=== PATIENT | female | born 1985 | race Two or more races ===

== ENCOUNTER 2018-04-19 07:56 | Outpatient (CLI) | payer OTHER ==
[~2018-04-19 07:56] MED LIST: DICLEGIS DR 101 EACH PO; NABUMETONE500 MG PO; PEPCID40 MG PO; PERCOCET 5/3251 TAB PO; PRENATAL 19 TA1 EACH PO
== END 2018-04-19 08:10 | disposition home or self-care (01) ==
LOC: RAD 07:56
DX: K42.9 Umbilical hernia without obstruction or gangrene (principal); Z01.818 Encounter for other preprocedural examination

== ENCOUNTER 2018-05-02 06:10 | Day surgery (SDC) | payer OTHER ==
[2018-05-02] MEDS ORDERED: NEURONTIN300 MG PO (09:10)
[2018-05-02] MEDS ORDERED: PERCOCET 5-3251 EACH PO (09:10)
[2018-05-02] MEDS ORDERED: MIRALAX17 GM PO (09:11)
== END 2018-05-02 10:30 | disposition home or self-care (01) ==
LOC: CIR.AMB 06:10
DX: K42.0 Umbilical hernia with obstruction, without gangrene (principal)

== ENCOUNTER 2018-08-24 11:38 | Outpatient (CLI) | payer OTHER ==
[~2018-08-24 11:38] MED LIST changes: +MIRALAX17 GM PO; +NEURONTIN300 MG PO; +PERCOCET 5-3251 EACH PO
== END 2018-08-24 11:52 | disposition home or self-care (01) ==
LOC: MRI 11:38
DX: M25.561 Pain in right knee (principal); M25.562 Pain in left knee
CPT/HCPCS: 73721

== ENCOUNTER → 2019-03-27 | Outpatient (CLI) | payer OTHER | END | disposition home or self-care (01) | LOC: MAMO-SONO 03-26 10:45 → SONOGRAMA 10:54 | DX: N63.10 Unspecified lump in the right breast, unspecified quadrant (principal); N63.20 Unspecified lump in the left breast, unspecified quadrant ==

== ENCOUNTER 2019-04-03 10:09 | Emergency (ER) | payer OTHER ==
[~2019-04-03] VITALS: Ht 162.6 cm; Wt 75.7 kg
== END 2019-04-03 14:41 | disposition home or self-care (01) ==
LOC: ER 10:09
DX: I95.9 Hypotension, unspecified (principal); R42 Dizziness and giddiness

== ENCOUNTER 2019-12-06 12:30 | Outpatient (CLI) | payer OTHER ==
[2019-12-10] MEDS ORDERED: VITAMIN C500 M2 (13:00)
== END 2019-12-06 12:35 | disposition home or self-care (01) ==
LOC: RAD 12:30
DX: K43.2 Incisional hernia without obstruction or gangrene (principal); Z01.811 Encounter for preprocedural respiratory examination

== ENCOUNTER 2019-12-11 05:37 | Day surgery (SDC) | payer OTHER ==
[~2019-12-11 05:37] MED LIST changes: +VITAMIN C500 M2
[2019-12-11] MEDS ORDERED: NEURONTIN600 M1 PO (13:46)
[2019-12-11] MEDS ORDERED: PERCOCET 5-3251 EACH PO (13:46)
[2019-12-11] MEDS ORDERED: COLACE100 MG PO (13:47)
== END 2019-12-11 18:00 | disposition home or self-care (01) ==
LOC: CIR.AMB 05:37
DX: K43.0 Incisional hernia with obstruction, without gangrene (principal)

== ENCOUNTER 2020-11-19 09:29 | Emergency (ER) | payer OTHER ==
[~2020-11-19] VITALS: Ht 162.6 cm; Wt 69.9 kg
[~2020-11-19 09:29] MED LIST changes: +COLACE100 MG PO; +NEURONTIN600 M1 PO
[2020-11-19] MEDS ORDERED: SKELAXIN800 MG PO (12:03)
[2020-11-19] MEDS ORDERED: KETO10TA2 PO (12:03)
== END 2020-11-19 12:53 | disposition home or self-care (01) ==
LOC: ER 09:29
DX: S83.92XA Sprain of unspecified site of left knee, initial encounter (principal); X50.0XXA Overexertion from strenuous movement or load, initial encounter; Y93.01 Activity, walking, marching and hiking; Y92.89 Other specified places as the place of occurrence of the external cause; Y99.8 Other external cause status

== ENCOUNTER → 2020-12-02 | Outpatient (CLI) | payer OTHER ==
[~2020-12-02] MED LIST changes: +KETO10TA2 PO; +SKELAXIN800 MG PO
== END | disposition home or self-care (01) ==
LOC: MRI 10:59
PROVIDERS: ATTEND Orthopaedic Surgery
DX: M25.561 Pain in right knee (principal)
CPT/HCPCS: 73721

== ENCOUNTER 2021-04-21 14:52 | Emergency (ER) | payer OTHER ==
[~2021-04-21] VITALS: Ht 162.6 cm; Wt 70.3 kg
== END 2021-04-21 16:56 | disposition home or self-care (01) ==
LOC: ER 14:52
DX: M25.561 Pain in right knee (principal); G89.11 Acute pain due to trauma

== ENCOUNTER → 2021-05-13 | Outpatient (CLI) | payer OTHER | END | disposition home or self-care (01) | LOC: LAB 11:59 | PROVIDERS: ATTEND Emergency Medicine Pediatric Emergency Medicine | DX: Z03.818 Encounter for observation for suspected exposure to other biological agents ruled out (principal) ==

== ENCOUNTER 2021-07-12 08:00 | Outpatient (CLI) | payer OTHER | END 2021-07-12 08:30 | disposition home or self-care (01) | LOC: PPH VACUNA 08:00 | PROVIDERS: ATTEND Emergency Medicine Pediatric Emergency Medicine | DX: Z23 Encounter for immunization (principal) ==

== ENCOUNTER → 2021-07-14 06:29 | Outpatient (CLI) | payer OTHER | END | disposition home or self-care (01) | LOC: LAB 06:29 | PROVIDERS: ATTEND Internal Medicine Cardiovascular Disease | DX: D64.89 Other specified anemias (principal); R10.84 Generalized abdominal pain; E03.8 Other specified hypothyroidism; E78.49 Other hyperlipidemia; E55.9 Vitamin D deficiency, unspecified; R73.09 Other abnormal glucose; R00.2 Palpitations; R06.09 Other forms of dyspnea ==

== ENCOUNTER 2021-07-27 12:48 | Emergency (ER) | payer OTHER ==
[~2021-07-27] VITALS: Ht 162.6 cm; Wt 72.6 kg
[2021-07-27] MEDS ORDERED: VITAMIN D-40010 MCG (13:05)
[2021-07-27] MEDS ORDERED: MULTI VITAMIN1 EACH PO (13:06)
[2021-07-27] MEDS ORDERED: FLONASE ALLERG9.9 ML NASAL (16:52)
[2021-07-27] MEDS ORDERED: MUCINEX DM ER1 EAC1 PO (16:52)
[2021-07-27] MEDS ORDERED: TOBRAMYCIN-DEXAM5 ML OP (16:52)
[2021-07-27] MEDS ORDERED: ZITHROMAX500 MG PO (16:52)
== END 2021-07-27 17:20 | disposition home or self-care (01) ==
LOC: ER 12:48
DX: J06.9 Acute upper respiratory infection, unspecified (principal); J03.90 Acute tonsillitis, unspecified; Z03.818 Encounter for observation for suspected exposure to other biological agents ruled out

== ENCOUNTER 2021-09-23 12:17 | Emergency (ER) | payer OTHER ==
[~2021-09-23] VITALS: Ht 162.6 cm; Wt 71.7 kg
[~2021-09-23 12:17] MED LIST changes: +FLONASE ALLERG9.9 ML NASAL; +MUCINEX DM ER1 EAC1 PO; +MULTI VITAMIN1 EACH PO; +TOBRAMYCIN-DEXAM5 ML OP; +VITAMIN D-40010 MCG; +ZITHROMAX500 MG PO
[2021-09-23] MEDS ORDERED: ORPHENADRINE C100 MG PO (15:47)
[2021-09-23] MEDS ORDERED: NAPROXEN SODIU275 MG PO (15:48)
== END 2021-09-23 15:53 | disposition home or self-care (01) ==
LOC: ER 12:17
DX: R42 Dizziness and giddiness (principal); M62.838 Other muscle spasm

== ENCOUNTER 2021-11-23 07:36 | Outpatient (CLI) | payer OTHER ==
[~2021-11-23 07:36] MED LIST changes: +NAPROXEN SODIU275 MG PO; +ORPHENADRINE C100 MG PO
== END 2021-11-23 07:43 | disposition home or self-care (01) ==
LOC: RAD 07:36
PROVIDERS: ATTEND Orthopaedic Surgery Sports Medicine
DX: M79.641 Pain in right hand (principal)

== ENCOUNTER → 2021-12-06 07:54 | Outpatient (CLI) | payer OTHER | END | disposition home or self-care (01) | LOC: LAB 07:54 | PROVIDERS: ATTEND Orthopaedic Surgery Sports Medicine | DX: M26.629 Arthralgia of temporomandibular joint, unspecified side (principal) ==

== ENCOUNTER 2021-12-06 08:33 | Outpatient (CLI) | payer OTHER | END 2021-12-06 08:42 | disposition home or self-care (01) | LOC: RAD 08:33 | PROVIDERS: ATTEND Orthopaedic Surgery Sports Medicine | DX: M54.2 Cervicalgia (principal) ==

== ENCOUNTER 2022-01-01 07:21 | Outpatient (CLI) | payer OTHER | END 2022-01-01 07:25 | disposition home or self-care (01) | LOC: LAB 07:21 | PROVIDERS: ATTEND Internal Medicine Cardiovascular Disease | DX: D64.9 Anemia, unspecified (principal); N39.0 Urinary tract infection, site not specified; R10.9 Unspecified abdominal pain; E03.9 Hypothyroidism, unspecified; E78.5 Hyperlipidemia, unspecified; E55.9 Vitamin D deficiency, unspecified; R80.9 Proteinuria, unspecified; E11.9 Type 2 diabetes mellitus without complications; R73.09 Other abnormal glucose; Z79.01 Long term (current) use of anticoagulants ==

== ENCOUNTER 2022-02-05 11:50 | Outpatient (CLI) | payer OTHER | END 2022-02-05 12:03 | disposition home or self-care (01) | LOC: RAD 11:50 | DX: M99.01 Segmental and somatic dysfunction of cervical region (principal); M99.02 Segmental and somatic dysfunction of thoracic region; M99.03 Segmental and somatic dysfunction of lumbar region ==

== ENCOUNTER 2022-02-11 20:24 | Emergency (ER) | payer OTHER ==
[~2022-02-11] VITALS: Ht 162.6 cm; Wt 73.9 kg
[2022-02-11] MEDS ORDERED: MIDODRINE HCL10 MG PO (20:43)
[2022-02-11] MEDS ORDERED: TUSNEL LIQUID178 ML PO (21:50)
[2022-02-11] MEDS ORDERED: DOLOGEN CAPLET1 EACH PO (21:50)
[2022-02-11] MEDS ORDERED: PROAIR HFA8.5 GM IH (21:50)
[2022-02-11] MEDS ORDERED: ZITHROMAX500 MG PO (21:50)
[2022-02-11] MEDS ORDERED: MEDROLPACK PO (21:50)
== END 2022-02-11 22:10 | disposition home or self-care (01) ==
LOC: ER 20:24
DX: U07.1 COVID-19 (principal); Z91.013 Allergy to seafood

== ENCOUNTER 2022-02-28 15:04 | Emergency (ER) | payer OTHER ==
[~2022-02-28] VITALS: Ht 162.6 cm; Wt 73.5 kg
[~2022-02-28 15:04] MED LIST changes: +DOLOGEN CAPLET1 EACH PO; +MEDROLPACK PO; +MIDODRINE HCL10 MG PO; +PROAIR HFA8.5 GM IH; +TUSNEL LIQUID178 ML PO
[2022-02-28] MEDS ORDERED: STRIBILD TABLE1 EACH PO (16:43)
== END 2022-02-28 18:34 | disposition home or self-care (01) ==
LOC: ER 15:04
DX: S61.239A Puncture wound without foreign body of unspecified finger without damage to nail, initial encounter (principal); W46.1XXA Contact with contaminated hypodermic needle, initial encounter; Y92.230 Patient room in hospital as the place of occurrence of the external cause; Y99.9 Unspecified external cause status; Y93.89 Activity, other specified

== ENCOUNTER 2022-03-23 06:26 | Outpatient (CLI) | payer OTHER ==
[~2022-03-23 06:26] MED LIST changes: +STRIBILD TABLE1 EACH PO
== END 2022-03-23 16:15 | disposition home or self-care (01) ==
LOC: LAB 06:26
PROVIDERS: ATTEND Internal Medicine Cardiovascular Disease
DX: D64.9 Anemia, unspecified (principal); R10.9 Unspecified abdominal pain

== ENCOUNTER → 2022-04-04 | Outpatient (CLI) | payer OTHER | END | disposition home or self-care (01) | LOC: MRI 11:24 | PROVIDERS: ATTEND Orthopaedic Surgery Sports Medicine | DX: M54.2 Cervicalgia (principal) | CPT/HCPCS: 72141 ==

== ENCOUNTER 2022-04-16 07:58 | Outpatient (CLI) | payer OTHER | END 2022-04-16 08:02 | disposition home or self-care (01) | LOC: LAB 07:58 | DX: M06.9 Rheumatoid arthritis, unspecified (principal); M32.19 Other organ or system involvement in systemic lupus erythematosus; D68.61 Antiphospholipid syndrome; M35.00 Sjogren syndrome, unspecified ==

== ENCOUNTER 2022-05-10 07:40 | Outpatient (CLI) | payer OTHER | END 2022-05-10 07:50 | disposition home or self-care (01) | LOC: TOM 07:40 | PROVIDERS: ATTEND Surgery | DX: R10.12 Left upper quadrant pain (principal); R10.9 Unspecified abdominal pain ==

== ENCOUNTER 2022-05-13 06:25 | Outpatient (CLI) | payer OTHER | END 2022-05-13 06:26 | disposition home or self-care (01) | LOC: LAB 06:25 | PROVIDERS: ATTEND Surgery | DX: R10.12 Left upper quadrant pain (principal); R19.4 Change in bowel habit ==

== ENCOUNTER 2022-05-18 14:53 | Outpatient (CLI) | payer OTHER | END 2022-05-18 15:00 | disposition home or self-care (01) | LOC: LAB 14:53 | PROVIDERS: ATTEND Surgery | DX: Z03.818 Encounter for observation for suspected exposure to other biological agents ruled out (principal); Z20.822 Contact with and (suspected) exposure to COVID-19 ==

== ENCOUNTER 2022-06-21 08:00 | Outpatient (CLI) | payer OTHER | END 2022-06-21 08:05 | disposition home or self-care (01) | LOC: PPH VACUNA 08:00 | PROVIDERS: ATTEND Emergency Medicine Pediatric Emergency Medicine | DX: Z23 Encounter for immunization (principal) ==

== ENCOUNTER 2022-07-27 11:51 | Outpatient (CLI) | payer OTHER | END 2022-07-27 11:52 | disposition home or self-care (01) | LOC: SONOGRAMA 11:51 | PROVIDERS: ATTEND Obstetrics & Gynecology | DX: D25.9 Leiomyoma of uterus, unspecified (principal) ==

== ENCOUNTER → 2022-07-28 06:25 | Outpatient (CLI) | payer OTHER | END | disposition home or self-care (01) | LOC: LAB 06:25 | PROVIDERS: ATTEND Obstetrics & Gynecology | DX: E55.9 Vitamin D deficiency, unspecified (principal); N30.00 Acute cystitis without hematuria; N23 Unspecified renal colic; Z01.419 Encounter for gynecological examination (general) (routine) without abnormal findings ==

== ENCOUNTER 2022-08-01 08:59 | Outpatient (CLI) | payer OTHER | END 2022-08-01 09:02 | disposition home or self-care (01) | LOC: LAB 08:59 | PROVIDERS: ATTEND Obstetrics & Gynecology | DX: N83.209 Unspecified ovarian cyst, unspecified side (principal) ==

== ENCOUNTER 2022-09-12 15:11 | Outpatient (CLI) | payer OTHER | END 2022-09-12 15:14 | disposition home or self-care (01) | LOC: SONOGRAMA 15:11 | DX: N83.209 Unspecified ovarian cyst, unspecified side (principal) ==

== ENCOUNTER 2022-11-13 13:13 | Emergency (ER) | payer OTHER ==
[~2022-11-13] VITALS: Ht 162.6 cm; Wt 76.2 kg
[2022-11-13] MEDS ORDERED: ZITHROMAX500 MG PO (18:04)
== END 2022-11-13 18:12 | disposition home or self-care (01) ==
LOC: ER 13:13
DX: U07.1 COVID-19 (principal); Z91.013 Allergy to seafood

== ENCOUNTER 2022-12-13 01:46 | Emergency (ER) | payer OTHER ==
[~2022-12-13] VITALS: Ht 162.6 cm; Wt 61.7 kg
== END 2022-12-13 07:16 | disposition home or self-care (01) ==
LOC: ER 01:46 → EMR PED 01:49 → ER 07:16
DX: K52.89 Other specified noninfective gastroenteritis and colitis (principal); Z20.822 Contact with and (suspected) exposure to COVID-19

== ENCOUNTER 2023-03-16 10:46 | Emergency (ER) | payer OTHER ==
[~2023-03-16] VITALS: Ht 162.6 cm; Wt 73.5 kg
== END 2023-03-16 13:51 | disposition home or self-care (01) ==
LOC: ER 10:46
DX: R42 Dizziness and giddiness (principal); Z91.013 Allergy to seafood

== ENCOUNTER 2023-04-19 10:00 | Day surgery (SDC) | payer OTHER ==
[~2023-04-19 10:00] MED LIST changes: +MAXIMUM D3325 MCG PO
== END 2023-04-19 20:15 | disposition home or self-care (01) ==
LOC: CIR.AMB 10:00
PROVIDERS: ATTEND Obstetrics & Gynecology
DX: N93.8 Other specified abnormal uterine and vaginal bleeding (principal); Z20.822 Contact with and (suspected) exposure to COVID-19

== ENCOUNTER 2023-05-02 09:43 | Emergency (ER) | payer OTHER ==
[~2023-05-02] VITALS: Ht 162.6 cm; Wt 73.5 kg
== END 2023-05-02 20:02 | disposition home or self-care (01) ==
LOC: ER 09:43
DX: R10.32 Left lower quadrant pain (principal); D25.9 Leiomyoma of uterus, unspecified; Z20.822 Contact with and (suspected) exposure to COVID-19; K76.89 Other specified diseases of liver; Z91.013 Allergy to seafood

== ENCOUNTER 2023-07-25 11:08 | Outpatient (CLI) | payer OTHER | END 2023-07-25 11:16 | disposition home or self-care (01) | LOC: MAMO-SONO 11:08 | PROVIDERS: ATTEND Obstetrics & Gynecology | DX: Z12.31 Encounter for screening mammogram for malignant neoplasm of breast (principal); N60.19 Diffuse cystic mastopathy of unspecified breast ==

== ENCOUNTER 2023-08-11 13:43 | Outpatient (CLI) | payer OTHER | END 2023-08-11 13:49 | disposition home or self-care (01) | LOC: RAD 13:43 | DX: M99.01 Segmental and somatic dysfunction of cervical region (principal); M99.02 Segmental and somatic dysfunction of thoracic region; M99.03 Segmental and somatic dysfunction of lumbar region; M99.04 Segmental and somatic dysfunction of sacral region; M99.05 Segmental and somatic dysfunction of pelvic region ==

== ENCOUNTER 2023-10-31 11:21 | Emergency (ER) | payer OTHER ==
[~2023-10-31] VITALS: Ht 162.6 cm; Wt 73.5 kg
== END 2023-10-31 13:27 | disposition home or self-care (01) ==
LOC: ER 11:21
DX: M25.561 Pain in right knee (principal); Z91.013 Allergy to seafood

== ENCOUNTER → 2023-11-02 | Outpatient (CLI) | payer OTHER | END | disposition home or self-care (01) | LOC: MRI 14:50 | PROVIDERS: ATTEND Orthopaedic Surgery | DX: M25.561 Pain in right knee (principal) | CPT/HCPCS: 73721 ==

== ENCOUNTER 2023-11-20 06:54 | Outpatient (CLI) | payer OTHER ==
[2023-11-20 07:36] LABS: HEMATOCRIT 33.3 % (36.0-45.00); HEMOGLOBIN 10.8 g/dL (12.0-15.00); MEAN CELL VOLUME 79.5 fL (80.00-100.00); MEAN CORPUSCULAR HEMOGLOBIN 25.8 pg (27.00-32.0); MEAN CORPUSCULAR HGB CONC 32.4 g/dl (32.0-36.0); PLATELET COUNT 225 K/uL (150-450); RED BLOOD COUNT 4.19 M/uL (4.00-6.00); RED CELL DISTRIBUTION WIDTH 17.1 % (11.5-14.5)
[2023-11-20 08:09] LABS: ALBUMIN 3.9 gm/dL (3.4-5.0); BILIRUBIN TOTAL 0.32 mg/dL (0.3-1.2); CREATININE SERUM 0.79 mg/dL (0.55-1.02); GFR 80.6; GLOBULINA 3.3 G/DL (2.4-3.5); POTASSIUM 4.34 mEq/L (3.5-5.1); TOTAL PROTEIN 7.2 gm/dL (6.4-8.2)
== END 2023-11-20 06:56 | disposition home or self-care (01) ==
LOC: LAB 06:54
PROVIDERS: ATTEND Internal Medicine Cardiovascular Disease
DX: D64.9 Anemia, unspecified (principal); R10.9 Unspecified abdominal pain; E78.5 Hyperlipidemia, unspecified; E11.9 Type 2 diabetes mellitus without complications; R73.09 Other abnormal glucose

== ENCOUNTER 2023-12-06 14:59 | Emergency (ER) | payer OTHER ==
[~2023-12-06] VITALS: Ht 162.6 cm; Wt 73.5 kg
[2023-12-06] MEDS ORDERED: IBUprofen 100 MG/5 ML-120ML ML PO STA (15:39)
[2023-12-06] MEDS ORDERED: CEFTRIAXONE SODIUM 2,000 MG VIAL IM STA (17:13)
[2023-12-06] MEDS ORDERED: KETOROLAC TROMETHAMINE 60 MG VIAL IM STA (17:13)
== END 2023-12-06 17:33 | disposition home or self-care (01) ==
LOC: ER 15:00
DX: J06.9 Acute upper respiratory infection, unspecified (principal)

== ENCOUNTER 2023-12-19 09:44 | Outpatient (CLI) | payer OTHER | END 2023-12-19 09:54 | disposition home or self-care (01) | LOC: PPH VACUNA 09:44 | PROVIDERS: ATTEND Emergency Medicine Pediatric Emergency Medicine | DX: Z23 Encounter for immunization (principal) ==

== ENCOUNTER 2024-01-29 14:49 | Emergency (ER) | payer OTHER ==
[~2024-01-29] VITALS: Ht 162.6 cm; Wt 72.6 kg
[2024-01-29] MEDS ORDERED: ZOLOFT25 MG PO (14:55)
[2024-01-29 16:15] LABS: HEMATOCRIT 33.8 % (36.0-45.00); HEMOGLOBIN 11.1 g/dL (12.0-15.00); MEAN CELL VOLUME 82.2 fL (80.00-100.00); MEAN CORPUSCULAR HEMOGLOBIN 26.9 pg (27.00-32.0); MEAN CORPUSCULAR HGB CONC 32.7 g/dl (32.0-36.0); PLATELET COUNT 232 K/uL (150-450); RED BLOOD COUNT 4.11 M/uL (4.00-6.00); RED CELL DISTRIBUTION WIDTH 16.8 % (11.5-14.5)
[2024-01-29 16:44] LABS: PH,URINE 5.5 (5.0-8.0); URINE APPEARANCE Clear; URINE BILIRRUBIN Negative (NEGATIVE); URINE BLOOD Trace; URINE COLOR Yellow; URINE GLUCOSE Negative (NEGATIVE); URINE LEUKOCYTE Negative; URINE NITRATE Negative; URINE PROTEIN Negative (NEGATIVE); URINE UROBILINOGEN 0.2 E.U./dl
[2024-01-29 16:48] LABS: URINE BACTERIA 390.4 uL (0.0-1933); URINE EPITHELIAL CELLS 23.6 uL (0.0-38.8); URINE RBC 7.6 uL (0.0-20.8); URINE WBC 11.8 uL (0.0-23.2)
[2024-01-29 16:52] LABS: BILIRUBIN TOTAL 0.16 mg/dL (0.3-1.2); CALCIUM 8.9 mg/dL (8.5-10.1); CREATININE SERUM 0.83 mg/dL (0.55-1.02); GFR 76.14; GLOBULINA 3.3 G/DL (2.4-3.5); POTASSIUM 4.43 mEq/L (3.5-5.1); TOTAL PROTEIN 7.3 gm/dL (6.4-8.2)
== END 2024-01-29 18:34 | disposition home or self-care (01) ==
LOC: ER 14:49
PROVIDERS: Nurse Practitioner Family
DX: R42 Dizziness and giddiness (principal); G90.A Postural orthostatic tachycardia syndrome [POTS]; Z91.013 Allergy to seafood

== ENCOUNTER 2024-05-09 07:36 | Outpatient (CLI) | payer OTHER ==
[~2024-05-09 07:36] MED LIST changes: +ZOLOFT25 MG PO
[2024-05-09 08:23] LABS: HEMATOCRIT 33.6 % (36.0-45.00); HEMOGLOBIN 11.2 g/dL (12.0-15.00); MEAN CELL VOLUME 82.3 fL (80.00-100.00); MEAN CORPUSCULAR HEMOGLOBIN 27.4 pg (27.00-32.0); MEAN CORPUSCULAR HGB CONC 33.2 g/dl (32.0-36.0); PLATELET COUNT 214 K/uL (150-450); RED BLOOD COUNT 4.08 M/uL (4.00-6.00); RED CELL DISTRIBUTION WIDTH 16.6 % (11.5-14.5)
[2024-05-09 08:42] LABS: PH,URINE 5.5 (5.0-8.0); URINE APPEARANCE Clear; URINE BILIRRUBIN Negative (NEGATIVE); URINE BLOOD Small; URINE COLOR Yellow; URINE GLUCOSE Negative (NEGATIVE); URINE LEUKOCYTE Negative; URINE NITRATE Negative; URINE PROTEIN Negative (NEGATIVE); URINE UROBILINOGEN 0.2 E.U./dl
[2024-05-09 08:44] LABS: URINE BACTERIA 117.1 uL (0.0-1933); URINE RBC 12.2 uL (0.0-20.8); URINE WBC 4.1 uL (0.0-23.2)
[2024-05-09 09:44] LABS: ALBUMIN 3.9 gm/dL (3.4-5.0); BILIRUBIN TOTAL 0.39 mg/dL (0.3-1.2); CHOL HDL RATIO 2.7 (0-5.0); CREATININE SERUM 0.78 mg/dL (0.55-1.02); GFR 81.8; GLOBULINA 3.2 G/DL (2.4-3.5); POTASSIUM 4.26 mEq/L (3.5-5.1); TOTAL PROTEIN 7.1 gm/dL (6.4-8.2)
== END 2024-05-09 07:37 | disposition home or self-care (01) ==
LOC: LAB 07:36
PROVIDERS: ATTEND Internal Medicine Cardiovascular Disease
DX: D64.9 Anemia, unspecified (principal); N39.0 Urinary tract infection, site not specified; R10.9 Unspecified abdominal pain; E78.5 Hyperlipidemia, unspecified; E11.9 Type 2 diabetes mellitus without complications; E78.2 Mixed hyperlipidemia

== ENCOUNTER → 2024-08-15 08:15 | Outpatient (CLI) | payer OTHER ==
[2024-08-15 08:56] LABS: HEMATOCRIT 34.8 % (36.0-45.00); HEMOGLOBIN 11.7 g/dL (12.0-15.00); MEAN CELL VOLUME 82.1 fL (80.00-100.00); MEAN CORPUSCULAR HEMOGLOBIN 27.6 pg (27.00-32.0); MEAN CORPUSCULAR HGB CONC 33.6 g/dl (32.0-36.0); PLATELET COUNT 238 K/uL (150-450); RED BLOOD COUNT 4.24 M/uL (4.00-6.00); RED CELL DISTRIBUTION WIDTH 16.1 % (11.5-14.5)
[2024-08-15 09:11] LABS: URINE APPEARANCE Clear; URINE BILIRRUBIN Negative (NEGATIVE); URINE BLOOD Small; URINE COLOR Yellow; URINE GLUCOSE Negative (NEGATIVE); URINE KETONE Negative (NEGATIVE); URINE LEUKOCYTE Negative; URINE NITRATE Negative; URINE PROTEIN Negative (NEGATIVE); URINE UROBILINOGEN 0.2 E.U./dl
[2024-08-15 09:15] LABS: URINE BACTERIA 67.9 uL (0.0-1933); URINE EPITHELIAL CELLS 9.3 uL (0.0-38.8); URINE RBC 12.6 uL (0.0-20.8); URINE WBC 2.9 uL (0.0-23.2)
[2024-08-15 09:21] LABS: ALBUMIN 4.1 gm/dL (3.4-5.0); BILIRUBIN TOTAL 0.48 mg/dL (0.3-1.2); CALCIUM 9.3 mg/dL (8.5-10.1); CHOL HDL RATIO 2.7 (0-5.0); CREATININE SERUM 0.82 mg/dL (0.55-1.02); GFR 76.82; GLOBULINA 3.4 G/DL (2.4-3.5); POTASSIUM 4.33 mEq/L (3.5-5.1); TOTAL PROTEIN 7.5 gm/dL (6.4-8.2)
[2024-08-15 12:42] LABS: TSH 0.993 uIU/mL (0.358-3.74)
== END | disposition home or self-care (01) ==
LOC: LAB 08:15
PROVIDERS: ATTEND Obstetrics & Gynecology
DX: E55.9 Vitamin D deficiency, unspecified (principal); N30.00 Acute cystitis without hematuria; N92.6 Irregular menstruation, unspecified; Z01.419 Encounter for gynecological examination (general) (routine) without abnormal findings

== ENCOUNTER 2024-08-15 09:23 | Outpatient (CLI) | payer OTHER | END 2024-08-15 09:40 | disposition home or self-care (01) | LOC: MAMO-SONO 09:23 | PROVIDERS: ATTEND Obstetrics & Gynecology | DX: N60.19 Diffuse cystic mastopathy of unspecified breast (principal); Z12.31 Encounter for screening mammogram for malignant neoplasm of breast; N92.6 Irregular menstruation, unspecified; N25.9 Disorder resulting from impaired renal tubular function, unspecified ==

== ENCOUNTER 2024-09-03 09:31 | Emergency (ER) | payer OTHER ==
[~2024-09-03] VITALS: Ht 162.6 cm; Wt 76.2 kg
[2024-09-03] MEDS ORDERED: CRYSELLE-28 TA1 EACH PO (10:18)
[2024-09-03] MEDS ORDERED: ACETAMINOPHEN 500 MG GEL..CAP PO ONE (11:15)
[2024-09-03] MEDS ORDERED: BENZONATATE 100 MG CAPSULE PO ONE (11:30)
[2024-09-03 11:53] LABS: HEMATOCRIT 34.9 % (36.0-45.00); HEMOGLOBIN 11.3 g/dL (12.0-15.00); MEAN CELL VOLUME 83.6 fL (80.00-100.00); MEAN CORPUSCULAR HEMOGLOBIN 27.2 pg (27.00-32.0); MEAN CORPUSCULAR HGB CONC 32.5 g/dl (32.0-36.0); PLATELET COUNT 210 K/uL (150-450); RED BLOOD COUNT 4.17 M/uL (4.00-6.00); RED CELL DISTRIBUTION WIDTH 15.9 % (11.5-14.5)
[2024-09-03 12:12] LABS: CREATININE SERUM 0.82 mg/dL (0.55-1.02); GFR 76.82; POTASSIUM 4.26 mEq/L (3.5-5.1)
[2024-09-03] MEDS ORDERED: NASAL MIST126 ML NASAL (13:44)
[2024-09-03] MEDS ORDERED: MUCINEX FAST-M1 EAC6 PO (13:44)
[2024-09-03] MEDS ORDERED: AMOX1TAB5 PO (13:44)
== END 2024-09-03 13:52 | disposition home or self-care (01) ==
LOC: ER 09:33
PROVIDERS: General Practice
DX: J00 Acute nasopharyngitis [common cold] (principal); Z91.013 Allergy to seafood; I49.8 Other specified cardiac arrhythmias; Z20.822 Contact with and (suspected) exposure to COVID-19

== ENCOUNTER 2025-07-30 14:01 | Emergency (ER) | payer OTHER ==
[~2025-07-30] VITALS: Ht 152.4 cm; Wt 77.1 kg
[~2025-07-30 14:01] MED LIST changes: +AMOX1TAB5 PO; +CRYSELLE-28 TA1 EACH PO; +MUCINEX FAST-M1 EAC6 PO; +NASAL MIST126 ML NASAL
[2025-07-30 14:17] VITALS: BP 123/80; O2SAT 99
[2025-07-30] MEDS ORDERED: 0.9 % SODIUM CHLORIDE 1,000 ML IV SCH (15:30)
[2025-07-30 16:01] LABS: BASO % 0.4 % (0.1-1.2); EOS # 0.19 (0.04-0.54); EOS % 2.0 % (0.7-7.0); LYMPH # 1.87 (1.18-3.74); LYMPH % 19.5 % (19.3-53.1); MEAN PLATELET VOLUME 10.00 fl (9.4-12.4); MONO # 0.87 (0.24-0.82); MONO % 9.1 % (4.7-12.5); NEUT # 6.58 (1.56-6.13); NEUT % 68.8 % (34.0-71.1); RED CELL DISTRIBUTION WIDTH 15.1 % (11.6-14.4)
[2025-07-30 17:08] LABS: URINE APPEARANCE Clear; URINE BILIRRUBIN Negative (NEGATIVE); URINE BLOOD Small; URINE COLOR Yellow; URINE GLUCOSE Negative (NEGATIVE); URINE KETONE Negative (NEGATIVE); URINE LEUKOCYTE Moderate; URINE NITRATE Negative; URINE PROTEIN Negative (NEGATIVE); URINE UROBILINOGEN 0.2 E.U./dl
[2025-07-30 17:13] LABS: URINE BACTERIA 4982.1 uL (0.0-1933); URINE EPITHELIAL CELLS 62.1 uL (0.0-38.8); URINE RBC 18.7 uL (0.0-20.8); URINE WBC 92.9 uL (0.0-23.2)
[2025-07-30 17:15] LABS: ALT/SGPT 42 U/L (12-78); AST/SGOT 23 U/L (15-37); BILIRUBIN TOTAL 0.22 mg/dL (0.3-1.2); BUN CREA RATIO 11 (7.0-25.0); CREATININE SERUM 0.82 mg/dL (0.55-1.02); GFR 76.45; GLOBULINA 3.5 G/DL (2.4-3.5); GLUCOSE FASTING 97 mg/dL (65-100); OSMOLALITY SERUM 278 MOSM/KG (275-295)
[2025-07-30 17:51] LABS: URINE CAST 1.31 uL (0.0-1.40); URINE CRYSTALS FEW /HPF; URINE MUCUS SCANT
[2025-07-30 17:52] LABS: TYPE CELLS SQUAMOUS
[2025-07-30] MEDS ORDERED: CEFTRIAXONE SODIUM 1,000 MG VIAL ONE (18:47)
[2025-07-30] MEDS ORDERED: CEFTRIAXONE SODIUM 1,000 MG VIAL IV ONE (19:00)
[2025-07-30] MEDS ORDERED: BACTRIM DS TAB1 EACH PO (21:47)
[2025-07-30] MEDS ORDERED: KETO10TA2 PO (21:47)
[2025-07-30 23:26] LABS: CKMB < 1.0 NG/ML (0.5-3.6)
== END 2025-07-30 22:10 | disposition home or self-care (01) ==
LOC: ER 14:01
PROVIDERS: Student in an Organized Health Care Education/Training Program
DX: N39.0 Urinary tract infection, site not specified (principal); I49.8 Other specified cardiac arrhythmias; N83.201 Unspecified ovarian cyst, right side; Z91.013 Allergy to seafood

== ENCOUNTER 2025-08-05 10:48 | Outpatient (CLI) | payer OTHER ==
[~2025-08-05 10:48] MED LIST changes: +BACTRIM DS TAB1 EACH PO
== END 2025-08-05 10:55 | disposition home or self-care (01) ==
LOC: SONOGRAMA 10:48
PROVIDERS: ATTEND Obstetrics & Gynecology
DX: R10.20 Pelvic and perineal pain unspecified side (principal)

== ENCOUNTER 2025-09-23 07:15 | Inpatient (IN) | payer OTHER ==
[~2025-09-23] VITALS: Ht 162.6 cm; Wt 85.3 kg
[2025-09-23 08:39] VITALS: BP 114/79
[2025-09-23] MEDS ORDERED: [UNRECOGNIZED DRUG - REMARK] (08:42)
[2025-09-23 08:55] LABS: URINE APPEARANCE Clear; URINE BILIRRUBIN Negative (NEGATIVE); URINE BLOOD Trace; URINE COLOR Yellow; URINE GLUCOSE Negative (NEGATIVE); URINE KETONE Negative (NEGATIVE); URINE LEUKOCYTE Negative; URINE NITRATE Negative; URINE PROTEIN Negative (NEGATIVE); URINE UROBILINOGEN 0.2 E.U./dl
[2025-09-23 08:56] LABS: BASO % 0.6 % (0.1-1.2); EOS # 0.16 (0.04-0.54); EOS % 2.2 % (0.7-7.0); LYMPH # 1.62 (1.18-3.74); LYMPH % 22.4 % (19.3-53.1); MEAN PLATELET VOLUME 10.20 fl (9.4-12.4); MONO # 0.68 (0.24-0.82); MONO % 9.4 % (4.7-12.5); NEUT # 4.71 (1.56-6.13); NEUT % 65.1 % (34.0-71.1); RED CELL DISTRIBUTION WIDTH 14.9 % (11.6-14.4)
[2025-09-23 08:58] LABS: URINE BACTERIA 714.8 uL (0.0-1933); URINE EPITHELIAL CELLS 31.8 uL (0.0-38.8); URINE RBC 30.1 uL (0.0-20.8); URINE WBC 10.7 uL (0.0-23.2)
[2025-09-23 09:25] LABS: URINE CAST 0.00 uL (0.0-1.40)
[2025-09-23 09:42] LABS: INR 1.07
[2025-09-23 09:51] LABS: ALT/SGPT 30.0 U/L (12-78); AST/SGOT 14.0 U/L (15-37); BILIRUBIN TOTAL 0.36 mg/dL (0.3-1.2); BUN CREA RATIO 15.0 (7.0-25.0); CREATININE SERUM 0.75 mg/dL (0.55-1.02); GFR 84.74; GLOBULINA 3.4 G/DL (2.4-3.5); GLUCOSE FASTING 103.0 mg/dL (65-100); OSMOLALITY SERUM 283.0 MOSM/KG (275-295)
[2025-10-01] MEDS ORDERED: CEFOXITIN SODIUM 2,000 MG VIAL IV ONE ×2 (11:30→14:15)
[2025-10-01] MEDS ORDERED: POVIDONE-IODINE 118 ML BOTT TOP ONE ×2 (12:16→14:15)
[2025-10-01] MEDS ORDERED: SUGAMMADEX SODIUM 200 MG/2 ML VIAL IV ONE ×2 (14:23→14:30)
[2025-10-01] MEDS ORDERED: HEMOSTATIC MATRIX 1 KIT KIT TOP ONE ×2 (14:56→15:15)
[2025-10-01 15:28] LABS: BASO % 0.2 % (0.1-1.2); EOS # 0.05 (0.04-0.54); EOS % 0.4 % (0.7-7.0); LYMPH # 1.51 (1.18-3.74); LYMPH % 12.5 % (19.3-53.1); MEAN PLATELET VOLUME 10.00 fl (9.4-12.4); MONO # 0.85 (0.24-0.82); MONO % 7.0 % (4.7-12.5); NEUT # 9.60 (1.56-6.13); NEUT % 79.4 % (34.0-71.1); RED CELL DISTRIBUTION WIDTH 14.8 % (11.6-14.4)
[2025-10-01] MEDS ORDERED: KETOROLAC TROMETHAMINE 60 MG VIAL IM STA (17:38)
[2025-10-01] MEDS ORDERED: RINGERS SOLUTION,LACTATED 1,000 ML IV SCH (17:45)
[2025-10-01] MEDS ORDERED: MORPHINE SULFATE 4 MG/ML VIAL IV PRN (17:45)
[2025-10-01 18:07] LABS: BASO % 0.1 % (0.1-1.2); EOS # 0.00 (0.04-0.54); EOS % 0.0 % (0.7-7.0); LYMPH # 0.62 (1.18-3.74); LYMPH % 4.2 % (19.3-53.1); MEAN PLATELET VOLUME 10.10 fl (9.4-12.4); MONO # 0.73 (0.24-0.82); MONO % 4.9 % (4.7-12.5); NEUT # 13.47 (1.56-6.13); NEUT % 90.6 % (34.0-71.1); RED CELL DISTRIBUTION WIDTH 14.8 % (11.6-14.4)
[2025-10-01] MEDS ORDERED: KETOROLAC TROMETHAMINE 60 MG VIAL IM ONE (18:19)
[2025-10-02 02:11] VITALS: BP 132/78
[2025-10-02 08:59] VITALS: BP 117/73
[2025-10-02] MEDS ORDERED: ACETAMINOPHEN 325 MG TABLET PO PRN (09:00)
[2025-10-02] MEDS ORDERED: OxyCODONE HCL 5 MG TABLET (ROXICODONE) PO PRN (09:00)
[2025-10-02] MEDS ORDERED: FF) RHO(D) IMMUNE GLOBULIN (POM) IM ONE (13:00)
[2025-10-02 13:41] VITALS: BP 124/77
[2025-10-02 17:07] VITALS: BP 104/71
[2025-10-03 01:23] VITALS: BP 90/55
[2025-10-03 09:04] VITALS: BP 94/64
[2025-10-03 19:20] VITALS: BP 103/72
[2025-10-04] VITALS: BP 93/50
[2025-10-04 08:16] VITALS: BP 106/72
== END 2025-10-04 11:03 | disposition home or self-care (01) | DRG 743 ==
LOC: SURH 10-01 07:00 → OB/GYN 10-01 18:13
PROVIDERS: ADMIT Obstetrics & Gynecology; ATTEND Obstetrics & Gynecology
PROC: 0UT70ZZ Resection of Bilateral Fallopian Tubes, Open Approach (ICD-10-PCS; 2025-10-01)
PROC: 0UB10ZZ Excision of Left Ovary, Open Approach (ICD-10-PCS; 2025-10-01)
PROC: 0UN10ZZ Release Left Ovary, Open Approach (ICD-10-PCS; 2025-10-01)
PROC: 0DNW0ZZ Release Peritoneum, Open Approach (ICD-10-PCS; 2025-10-01)
PROC: 0UT90ZZ Resection of Uterus, Open Approach (ICD-10-PCS; principal; 2025-10-01 07:00)
DX: D25.1 Intramural leiomyoma of uterus (principal); N84.0 Polyp of corpus uteri; N72 Inflammatory disease of cervix uteri; Z90.710 Acquired absence of both cervix and uterus; N70.11 Chronic salpingitis

== ENCOUNTER 2025-09-23 10:04 | Outpatient (CLI) | payer OTHER ==
[~2025-09-23 10:04] MED LIST changes: +[UNRECOGNIZED DRUG - REMARK]
== END 2025-09-23 10:07 | disposition home or self-care (01) ==
LOC: MAMO-SONO 10:04
PROVIDERS: ATTEND Obstetrics & Gynecology
DX: N60.19 Diffuse cystic mastopathy of unspecified breast (principal); Z12.31 Encounter for screening mammogram for malignant neoplasm of breast